=== PATIENT | female | born 1940 | race African-American/Black ===

== ENCOUNTER → 2018-08-18 | Outpatient (CLI) | payer OTHER ==
[~2018-08-18] MED LIST: ACAI BERRY500 MG PO; AMBEREN PO; ASA81BEC PO; ASPIRIN EC81 M1 PO; BENICAR HCT 201 EACH; BENICAR HCT 401 EAC1 PO; BENICAR20 MG PO; CALCIUM 500 +1 EAC5 PO; CELEBREX 200 M200 M1; CINNAMON PLUS1 EACH PO; CRESTOR20 MG PO; DETROL LA4 MG PO; FISH OIL 1,0001 EAC5 PO; FISHOIL PO; HYDROCHLOROTHIA25 M1 PO; JANUVIA100 MG PO; LEVOXYL100 MCG PO; LEVOXYL88 MCG PO; MULTIVITAMINS PO; PERCOCET 5-3251 EACH; PRANDIN1 MG PO; SIMVASTATIN20 MG PO; VITAMIN B-12100 MCG PO; VITAMIN B-12500 MC5 PO; VITAMIN B-150 MG PO; VITAMIN D1000 UNI1 PO; VITAMIN D32000 UNI1 PO; XARELTO10 M1
== END ==
LOC: RAD 09:05
DX: Z12.31 Encounter for screening mammogram for malignant neoplasm of breast (principal)

== ENCOUNTER → 2019-09-05 | Outpatient (CLI) | payer OTHER | LOC: RAD 11:25 | DX: Z12.31 Encounter for screening mammogram for malignant neoplasm of breast (principal) ==

== ENCOUNTER → 2020-04-16 | Outpatient (CLI) | payer OTHER | LOC: SJCVC 09:53 | PROVIDERS: ATTEND Internal Medicine Cardiovascular Disease | DX: I10 Essential (primary) hypertension (principal); E78.00 Pure hypercholesterolemia, unspecified; E11.9 Type 2 diabetes mellitus without complications; I65.23 Occlusion and stenosis of bilateral carotid arteries ==

== ENCOUNTER → 2020-10-15 | Outpatient (CLI) | payer OTHER | LOC: BC | PROVIDERS: ATTEND Family Medicine | DX: Z12.31 Encounter for screening mammogram for malignant neoplasm of breast (principal) ==

== ENCOUNTER → 2020-11-14 | Outpatient (CLI) | payer OTHER | LOC: SJCVCIMAG 10-22 09:02 | PROVIDERS: ATTEND Internal Medicine Cardiovascular Disease | DX: I65.23 Occlusion and stenosis of bilateral carotid arteries (principal); I10 Essential (primary) hypertension; E78.5 Hyperlipidemia, unspecified; E11.9 Type 2 diabetes mellitus without complications; I77.9 Disorder of arteries and arterioles, unspecified; Z79.82 Long term (current) use of aspirin; Z79.4 Long term (current) use of insulin; Z79.899 Other long term (current) drug therapy ==

== ENCOUNTER → 2021-10-22 | Outpatient (CLI) | payer OTHER | LOC: BC 09:15 | PROVIDERS: ATTEND Family Medicine | DX: Z12.31 Encounter for screening mammogram for malignant neoplasm of breast (principal) ==